=== PATIENT | female | born 1960 | race Caucasian/White ===

== ENCOUNTER 2019-01-11 08:53 | Outpatient (CLI) | payer OTHER ==
[~2019-01-11 08:53] MED LIST: CYM30 PO; DOCU-144 PO; ESOM20CA; FLUT16SP24 NS; FLUT1DIS3 IH; HYDR-1189 PO; PARO-63 PO; VALS40TA6
== END 2019-01-11 21:11 | disposition home or self-care (01) ==
LOC: SUS 08:53
PROVIDERS: ATTEND Surgery
DX: K46.9 Unspecified abdominal hernia without obstruction or gangrene (principal)
CPT/HCPCS: 76705

== ENCOUNTER 2019-01-17 07:55 | Outpatient (CLI) | payer OTHER ==
[2019-01-17] MEDS ORDERED: DIATR MEGLU/DIATRIZ SOD 30 ML SOLUTION PO ONE (08:33)
== END 2019-01-17 20:30 | disposition home or self-care (01) ==
LOC: SCT 07:55
PROVIDERS: ATTEND Surgery
DX: K43.9 Ventral hernia without obstruction or gangrene (principal); K43.2 Incisional hernia without obstruction or gangrene
CPT/HCPCS: 74176; Q9964

== ENCOUNTER 2019-02-03 12:27 | Inpatient (IN) | payer OTHER ==
[2019-01-30 17:01] LABS: RED BLOOD CELL COUNT(AUTO) 4.64 MIL/uL (4.2-6.2); WHITE BLOOD COUNT (AUTO) 7.3 K/uL (4.8-10.8)
[2019-01-30 17:02] LABS: BASOPHILS % (AUTO) 0.5 % (0.0-2.0); EOSINOPHILS # (AUTO) 0.2 K/uL (0.0-0.4); EOSINOPHILS % (AUTO) 3.3 % (0.0-4.0); HEMATOCRIT 41.1 % (36-48); HEMOGLOBIN 13.7 g/dL (12.0-16.0); LYMPHOCYTES # (AUTO) 1.9 K/uL (1.0-5.5); LYMPHOCYTES % (AUTO) 25.8 % (20.5-51.5); MEAN CORPUSCULAR HEMOGLOBIN 30 pg (27-31); MEAN CORPUSCULAR HGB CONC 33 % (32-36); MEAN CORPUSCULAR VOLUME 89 fL (79.0-98.0); MONOCYTES # (AUTO) 0.5 K/uL (0.0-1.0); MONOCYTES % (AUTO) 7.4 % (1.7-9.3); NEUTROPHILS # (AUTO) 4.6 K/uL (1.8-7.7); PLATELET COUNT (AUTO) 278 K/uL (130-430); RED CELL DISTRIBUTION WIDTH 13.8 % (9.0-15.0)
[2019-01-30 17:06] LABS: PROTHROMBIN TIME 10.1 SECS (9.5-12.5)
[2019-01-30 17:08] LABS: ALBUMIN 4.2 g/dL (3.4-4.8); CALCIUM 9.3 mg/dL (8.4-11.0); CREATININE 0.76 mg/dL (0.55-1.30); POTASSIUM 3.9 mmol/L (3.5-5.1); TOTAL BILIRUBIN 0.4 mg/dL (0.0-1.0)
[~2019-02-03] VITALS: Ht 165.1 cm; Wt 85.8 kg
[2019-02-03] MEDS ORDERED: VALS160T2 PO (13:29)
[2019-02-03] MEDS ORDERED: ASPI-1153 PO (13:29)
[2019-02-03] MEDS ORDERED: GLU500 PO (13:29)
[2019-02-03] MEDS ORDERED: LIP10 PO (13:29)
[2019-02-03] MEDS ORDERED: OMEP40CA33 PO (13:29)
[2019-02-03] MEDS ORDERED: MIDAZOLAM HCL 5 MG/5 ML VIAL IVP ONE (15:00)
[2019-02-03] MEDS ORDERED: hydrALAZINE HCL 20 MG/ML VIAL IVP ONE (15:00)
[2019-02-03] MEDS ORDERED: LIDOCAINE 2%, 20 ML MDV INJ ONE (15:00)
[2019-02-03] MEDS ORDERED: BUPIVACAINE /PF 0.5% 30 ML VIAL INJ ONE (15:00)
[2019-02-03] MEDS ORDERED: SEVOFLURANE 15 MIN GAS INH ONE (15:00)
[2019-02-03] MEDS ORDERED: KETOROLAC TROMETHAMINE 30 MG VIAL IVP ONE (15:00)
[2019-02-03] MEDS ORDERED: LABETALOL 100 MG/ 20ML VIAL IVP ONE (15:00)
[2019-02-03] MEDS ORDERED: NS IRRIG SOLN 1000 ML IR ONE (15:00)
[2019-02-03] MEDS ORDERED: MEPERIDINE HCL/PF 100 MG/ML AMP IM ONE (15:00)
[2019-02-03] MEDS ORDERED: NS 100 ML BAG IV ONE (15:00)
[2019-02-03] MEDS ORDERED: CEFAZOLIN 2 GM IVPB PREMIX 50 ML IV ONE (15:00)
[2019-02-03] MEDS ORDERED: LR 1,000 ML IV.SOLN IV ONE (15:00)
[2019-02-03] MEDS ORDERED: fentaNYL CITRATE/PF 100 MCG/2 ML AMP IVP ONE (15:00)
[2019-02-03] MEDS ORDERED: ROCURONIUM BROMIDE 10 MG/ML (ZEMURON) IV ONE (15:00)
[2019-02-03] MEDS ORDERED: ONDANSETRON HCL 4 MG/2 ML VIAL IVP ONE (15:00)
[2019-02-03] MEDS ORDERED: PROPOFOL 200MG/ 20ML VIAL (DIPRIVAN) IV ONE (15:00)
[2019-02-03] MEDS ORDERED: BUPIVACAINE LIPOSOME/PF 266 MG/20 ML VIAL INFIL ONE ×2 (15:00→15:45)
[2019-02-03] MEDS ORDERED: NEOSTIGMINE METHYLSULFATE 1 MG/ML, 10 ML VIAL IVP ONE (15:00)
[2019-02-03] MEDS ORDERED: GLYCOPYRROLATE 0.2 MG/ML VIAL IJ ONE (15:00)
[2019-02-03] MEDS ORDERED: KETOROLAC TROMETHAMINE 30 MG VIAL IVP PRN (16:00)
[2019-02-03] MEDS ORDERED: fentaNYL CITRATE/PF 100 MCG/2 ML AMP IVP PRN ×2 (16:00)
[2019-02-03] MEDS ORDERED: ONDANSETRON HCL 4 MG/2 ML VIAL IVP PRN (16:00)
[2019-02-03] MEDS ORDERED: POLYMYXIN 500,000/BACIT.10,000 UNITS in NS IRR 1 L IR ONE (17:42)
[2019-02-03] MEDS ORDERED: NACL 0.9% 1,000 ML IV SCH (18:23)
[2019-02-03] MEDS ORDERED: CEFAZOLIN 1 GM IVPB PREMIX 50 ML IV SCH (18:30)
[2019-02-03] MEDS ORDERED: ACETAMINOPHEN 325 MG TABLET PO PRN (18:30)
[2019-02-03] MEDS ORDERED: HYDROcodone/ACETAMIN 5-325 MG TAB (NORCO/ VICODIN) PO SCH (19:30)
[2019-02-03] MEDS ORDERED: DEXTROSE 50% JECT 50 ML DISP.SYRIN IVP PRN (19:30)
[2019-02-03] MEDS ORDERED: KETOROLAC TROMETHAMINE 30 MG VIAL ONE (19:44)
[2019-02-03] MEDS ORDERED: INSULIN REGULAR, HUMAN 100 UNITS/ML, 10 ML VIAL SUBCUT ONE (19:45)
[2019-02-03 20:31] VITALS: BP_SYST 117
[2019-02-03 20:40] VITALS: BP_SYST 95
[2019-02-03] MEDS: DOCUSATE SODIUM 100 MG CAPSULE PO SCH (21:00)
[2019-02-03 21:31] VITALS: BP_SYST 107
[2019-02-03 22:00] VITALS: BP_SYST 97
[2019-02-03] MEDS ORDERED: CEFAZOLIN SODIUM 2,000 MG in D5W 50 ML IV SCH (22:00)
[2019-02-03] MEDS: FAMOTIDINE PF 20 MG/2 ML VIAL IVP SCH (22:11)
[2019-02-03 23:00] VITALS: BP_SYST 102
[2019-02-03] MEDS ORDERED: CEFAZOLIN 2 GM IVPB PREMIX 100 ML IV ONE (23:35)
[2019-02-03] MEDS: CEFAZOLIN 2 GM IVPB PREMIX 50 ML IV SCH (23:39)
[2019-02-04] VITALS (21 sets, daily range): BP systolic 87–116
[2019-02-04] MEDS: HYDROmorphone 1 MG INJ. 1 MG/ML AMPUL IVP PRN ×3 (00:48→19:29)
[2019-02-04] MEDS: INSULIN REGULAR, HUMAN 100 UNITS/ML, 10 ML VIAL (novoLIN R) SUBCUT PRN ×3 (00:57→09:26)
[2019-02-04] MEDS: D5/0.45 NS 1,000 ML IV SCH ×3 (02:49→16:29)
[2019-02-04] MEDS: CEFAZOLIN 2 GM IVPB PREMIX 50 ML IV SCH (05:21)
[2019-02-04 07:26] LABS: HEMOGLOBIN 11.6 g/dL (12.0-16.0); RED BLOOD CELL COUNT(AUTO) 3.89 MIL/uL (4.2-6.2); WHITE BLOOD COUNT (AUTO) 10.9 K/uL (4.8-10.8)
[2019-02-04 07:27] LABS: BASOPHILS % (AUTO) 0.1 % (0.0-2.0); HEMATOCRIT 34.7 % (36-48); LYMPHOCYTES # (AUTO) 0.5 K/uL (1.0-5.5); LYMPHOCYTES % (AUTO) 4.7 % (20.5-51.5); MEAN CORPUSCULAR HEMOGLOBIN 30 pg (27-31); MEAN CORPUSCULAR HGB CONC 33 % (32-36); MEAN CORPUSCULAR VOLUME 89 fL (79.0-98.0); MONOCYTES # (AUTO) 0.4 K/uL (0.0-1.0); MONOCYTES % (AUTO) 4.1 % (1.7-9.3); NEUTROPHILS # (AUTO) 9.9 K/uL (1.8-7.7); NEUTROPHILS % (AUTO) 91.1 % (40.0-70.0); PLATELET COUNT (AUTO) 261 K/uL (130-430); RED CELL DISTRIBUTION WIDTH 13.7 % (9.0-15.0)
[2019-02-04 07:40] LABS: CALCIUM 8.6 mg/dL (8.4-11.0); CREATININE 0.79 mg/dL (0.55-1.30); POTASSIUM 4.3 mmol/L (3.5-5.1); TOTAL BILIRUBIN 0.6 mg/dL (0.0-1.0)
[2019-02-04 07:41] LABS: ALBUMIN 3.1 g/dL (3.4-4.8); FREE T4 (FREE THYROXINE) 0.9 ng/dl (0.8-1.5); THYROID STIMULATING HORMONE 0.49 uIu/mL (0.36-3.74)
[2019-02-04] MEDS: VALSARTAN 160 MG TABLET (DIOVAN) PO SCH (09:00)
[2019-02-04] MEDS: DOCUSATE SODIUM 100 MG CAPSULE PO SCH ×2 (09:00→20:09)
[2019-02-04] MEDS ORDERED: OMEPRAZOLE 20 MG CAPSULE.DR (PriLOSEC) PO SCH (09:00)
[2019-02-04] MEDS ORDERED: PARoxetine HCL 20 MG TABLET PO SCH (09:00)
[2019-02-04] MEDS: ATORVASTATIN 10 MG TABLET PO SCH (09:14)
[2019-02-04] MEDS: metFORMIN HCL 500 MG TABLET PO SCH (09:14)
[2019-02-04] MEDS: FAMOTIDINE PF 20 MG/2 ML VIAL IVP SCH ×2 (09:15→20:09)
[2019-02-04] MEDS: DULoxetine HCL 30 MG CAPSULE.DR (CYMBALTA) PO SCH (09:15)
[2019-02-04] MEDS: HYDROcodone/ACETAMIN 5-325 MG TAB (NORCO/ VICODIN) PO PRN (09:29)
[2019-02-04] MEDS: ONDANSETRON HCL 4 MG/2 ML VIAL IVP PRN ×2 (13:59→19:47)
[2019-02-04 14:39] LABS: BILIRUBIN,URINE NEGATIVE (NEGATIVE); BLOOD, URINE NEGATIVE (NEGATIVE); CLARITY/URINE CLEAR (CLEAR); COLOR,URINE YELLOW (YELLOW); GLUCOSE,URINE NEGATIVE (NEGATIVE); KETONES,URINE NEGATIVE (NEGATIVE); LEUKOCYTE ESTERASE ,URINE NEGATIVE (NEGATIVE); NITRITE, URINE NEGATIVE (NEGATIVE); PH,URINE 6.5 (5.0-8.0); PROTEIN URINE TRACE (NEGATIVE); UROBILINOGEN,URINE 0.2 (0.2-1.0)
[2019-02-05 00:13] VITALS: BP_SYST 106
[2019-02-05] MEDS: ONDANSETRON HCL 4 MG/2 ML VIAL IVP PRN ×2 (01:36→07:58)
[2019-02-05] MEDS: D5/0.45 NS 1,000 ML IV SCH ×2 (01:36→15:31)
[2019-02-05] MEDS: HYDROmorphone 1 MG INJ. 1 MG/ML AMPUL IVP PRN ×4 (01:37→22:11)
[2019-02-05] MEDS: HYDROcodone/ACETAMIN 5-325 MG TAB (NORCO/ VICODIN) PO PRN ×2 (07:02→15:43)
[2019-02-05 07:29] LABS: CALCIUM 8.3 mg/dL (8.4-11.0); CREATININE 0.61 mg/dL (0.55-1.30); POTASSIUM 3.6 mmol/L (3.5-5.1)
[2019-02-05 07:42] LABS: ALBUMIN 2.9 g/dL (3.4-4.8); TOTAL BILIRUBIN 0.6 mg/dL (0.0-1.0)
[2019-02-05 07:51] LABS: BASOPHILS % (AUTO) 0.4 % (0.0-2.0); EOSINOPHILS % (AUTO) 0.8 % (0.0-4.0); HEMATOCRIT 30.3 % (36-48); HEMOGLOBIN 10.3 g/dL (12.0-16.0); LYMPHOCYTES # (AUTO) 1.4 K/uL (1.0-5.5); LYMPHOCYTES % (AUTO) 17.2 % (20.5-51.5); MEAN CORPUSCULAR HEMOGLOBIN 30 pg (27-31); MEAN CORPUSCULAR HGB CONC 34 % (32-36); MEAN CORPUSCULAR VOLUME 90 fL (79.0-98.0); MONOCYTES # (AUTO) 0.8 K/uL (0.0-1.0); MONOCYTES % (AUTO) 9.4 % (1.7-9.3); NEUTROPHILS # (AUTO) 5.8 K/uL (1.8-7.7); NEUTROPHILS % (AUTO) 72.2 % (40.0-70.0); PLATELET COUNT (AUTO) 226 K/uL (130-430); RED BLOOD CELL COUNT(AUTO) 3.38 MIL/uL (4.2-6.2); RED CELL DISTRIBUTION WIDTH 13.5 % (9.0-15.0); WHITE BLOOD COUNT (AUTO) 8.1 K/uL (4.8-10.8)
[2019-02-05 07:52] LABS: EOSINOPHILS # (AUTO) 0.1 K/uL (0.0-0.4)
[2019-02-05 08:00] VITALS: BP_SYST 115
[2019-02-05] MEDS: DOCUSATE SODIUM 100 MG CAPSULE PO SCH ×2 (08:51→20:56)
[2019-02-05] MEDS: DULoxetine HCL 30 MG CAPSULE.DR (CYMBALTA) PO SCH (08:51)
[2019-02-05] MEDS: metFORMIN HCL 500 MG TABLET PO SCH (08:51)
[2019-02-05] MEDS: ATORVASTATIN 10 MG TABLET PO SCH (08:51)
[2019-02-05] MEDS: FAMOTIDINE PF 20 MG/2 ML VIAL IVP SCH ×2 (08:58→20:55)
[2019-02-05] MEDS: VALSARTAN 160 MG TABLET (DIOVAN) PO SCH (09:00)
[2019-02-05 12:02] VITALS: BP_SYST 128
[2019-02-05] MEDS: INSULIN REGULAR, HUMAN 100 UNITS/ML, 10 ML VIAL (novoLIN R) SUBCUT PRN (12:11)
[2019-02-05] MEDS ORDERED: ONDANSETRON HCL 4 MG/2 ML VIAL IVP PRN (13:00)
[2019-02-05 16:02] VITALS: BP_SYST 128
[2019-02-05 21:03] VITALS: BP_SYST 107
[2019-02-06 00:30] VITALS: BP_SYST 112
[2019-02-06] MEDS: HYDROmorphone 1 MG INJ. 1 MG/ML AMPUL IVP PRN ×3 (06:15→19:06)
[2019-02-06 08:00] VITALS: BP_SYST 106
[2019-02-06] MEDS: VALSARTAN 160 MG TABLET (DIOVAN) PO SCH (09:00)
[2019-02-06] MEDS: ATORVASTATIN 10 MG TABLET PO SCH (09:09)
[2019-02-06] MEDS: metFORMIN HCL 500 MG TABLET PO SCH (09:09)
[2019-02-06] MEDS: FAMOTIDINE PF 20 MG/2 ML VIAL IVP SCH (09:09)
[2019-02-06] MEDS: DULoxetine HCL 30 MG CAPSULE.DR (CYMBALTA) PO SCH (09:09)
[2019-02-06] MEDS: DOCUSATE SODIUM 100 MG CAPSULE PO SCH ×2 (09:09→09:10)
[2019-02-06] MEDS: HYDROcodone/ACETAMIN 5-325 MG TAB (NORCO/ VICODIN) PO PRN (10:37)
[2019-02-06 12:58] VITALS: BP_SYST 112
[2019-02-06] MEDS ORDERED: HYDROmorphone 1 MG INJ. 1 MG/ML AMPUL ONE (15:08)
[2019-02-06] MEDS ORDERED: BISACODYL 10 MG/SUPPOSITORY RC PRN (15:45)
[2019-02-06] MEDS ORDERED: BISACODYL 10 MG/SUPPOSITORY RC ONE (15:45)
[2019-02-06 15:55] VITALS: BP_SYST 112
[2019-02-06 16:36] VITALS: BP_SYST 117
[2019-02-06 18:35] VITALS: BP_SYST 117
== END 2019-02-06 20:10 | disposition home or self-care (01) | DRG 354 ==
LOC: SDS 12:27 → SMU 12:27 → SDS 20:24 → SIC 20:25 → SMU 20:25 → SIC 20:26 → SMU 02-04 19:32 → SIC 02-04 19:32 → SMU 02-06 11:00 → SDS 02-06 11:00 → SMU 02-06 11:08 → UNDOADMIN 02-06 11:08
PROVIDERS: ADMIT Surgery; ATTEND Surgery
PROC: 0WUF0KZ Supplement Abdominal Wall with Nonautologous Tissue Substitute, Open Approach (ICD-10-PCS; principal; 2019-02-03 14:30)
DX: K43.9 Ventral hernia without obstruction or gangrene (principal); K56.7 Ileus, unspecified; E11.9 Type 2 diabetes mellitus without complications; I10 Essential (primary) hypertension; F32.9 Major depressive disorder, single episode, unspecified; G47.33 Obstructive sleep apnea (adult) (pediatric); E66.9 Obesity, unspecified; G47.30 Sleep apnea, unspecified; K66.0 Peritoneal adhesions (postprocedural) (postinfection); Z68.31 Body mass index [BMI] 31.0-31.9, adult; Z93.3 Colostomy status
CPT/HCPCS: 36415; 71046-TC; 80053; 80061; 81003; 82948; 82962; 83036; 83735-TC; 84439; 84443-TC; 85025; 85610-TC; 85730-TC; 86886; 86900; 86901; 87081; 88304; 88305; 93005; 94010; 94660; 94760; 97110-GP; 97116-GP; 97530-GP; C9290; J0360; J0690; J1170; J1815; J1885; J2001; J2175; J2250; J2405; J2704; J2710; J3010; J3490; J7120

== ENCOUNTER 2019-02-28 17:46 | Inpatient (IN) | payer OTHER ==
[~2019-02-28] VITALS: Ht 167.6 cm; Wt 85.7 kg
[~2019-02-28 17:46] MED LIST changes: +ASPI-1153 PO; +GLU500 PO; +LIP10 PO; +OMEP40CA33 PO; +VALS160T2 PO
[2019-02-28 18:18] VITALS: BP_SYST 102
[2019-02-28 19:03] LABS: BASOPHILS # (AUTO) 0.1 K/uL (0.0-0.2); BASOPHILS % (AUTO) 0.6 % (0.0-2.0); EOSINOPHILS # (AUTO) 0.8 K/uL (0.0-0.4); EOSINOPHILS % (AUTO) 7.3 % (0.0-4.0); HEMATOCRIT 34.9 % (36-48); HEMOGLOBIN 11.6 g/dL (12.0-16.0); LYMPHOCYTES # (AUTO) 1.6 K/uL (1.0-5.5); LYMPHOCYTES % (AUTO) 15.8 % (20.5-51.5); MEAN CORPUSCULAR HEMOGLOBIN 29 pg (27-31); MEAN CORPUSCULAR HGB CONC 33 % (32-36); MEAN CORPUSCULAR VOLUME 87 fL (79.0-98.0); MONOCYTES # (AUTO) 0.7 K/uL (0.0-1.0); MONOCYTES % (AUTO) 7.1 % (1.7-9.3); NEUTROPHILS # (AUTO) 7.2 K/uL (1.8-7.7); NEUTROPHILS % (AUTO) 69.2 % (40.0-70.0); PLATELET COUNT (AUTO) 549 K/uL (130-430); RED BLOOD CELL COUNT(AUTO) 4.03 MIL/uL (4.2-6.2); WHITE BLOOD COUNT (AUTO) 10.4 K/uL (4.8-10.8)
[2019-02-28 19:14] LABS: CALCIUM 9.4 mg/dL (8.4-11.0); CREATININE 0.76 mg/dL (0.55-1.30)
[2019-02-28 19:19] LABS: ALBUMIN 3.1 g/dL (3.4-4.8); TOTAL BILIRUBIN 0.2 mg/dL (0.0-1.0)
[2019-02-28 19:24] LABS: PROTHROMBIN TIME 10.6 SECS (9.5-12.5)
[2019-02-28] MEDS ORDERED: NACL 0.9% 1,000 ML IV ONE (19:59)
[2019-02-28] MEDS ORDERED: MORPHINE 4 MG/ML INJ. SYRINGE IVP ONE (20:00)
[2019-02-28] MEDS ORDERED: DIPHENHYDRAMINE INJ 50 MG/ML VIAL IVP ONE (20:00)
[2019-02-28] MEDS ORDERED: PIPERACILLIN/TAZO 3.375 GM in NS 50 ML IV ONE (20:00)
[2019-02-28] MEDS ORDERED: PIPERACILLIN/TAZOBACTAM 3.375 GM/VIAL (ZOSYN) IV ONE ×2 (20:29→23:54)
[2019-02-28] MEDS ORDERED: ESOM40CA PO (20:38)
[2019-02-28 21:09] LABS: BILIRUBIN,URINE NEGATIVE (NEGATIVE); BLOOD, URINE NEGATIVE (NEGATIVE); CLARITY/URINE CLEAR (CLEAR); COLOR,URINE YELLOW (YELLOW); GLUCOSE,URINE NEGATIVE (NEGATIVE); KETONES,URINE NEGATIVE (NEGATIVE); LEUKOCYTE ESTERASE ,URINE NEGATIVE (NEGATIVE); NITRITE, URINE NEGATIVE (NEGATIVE); PH,URINE 6.5 (5.0-8.0); PROTEIN URINE NEGATIVE (NEGATIVE); UROBILINOGEN,URINE 0.2 (0.2-1.0)
[2019-02-28 23:04] VITALS: BP_SYST 124
[2019-02-28] MEDS ORDERED: DEXTROSE 50% JECT 50 ML DISP.SYRIN IVP PRN (23:30)
[2019-02-28] MEDS ORDERED: ACETAMINOPHEN 325 MG TABLET PO PRN (23:30)
[2019-02-28] MEDS ORDERED: MORPHINE 4 MG/ML INJ. SYRINGE IVP PRN ×2 (23:30)
[2019-02-28] MEDS ORDERED: HYDROcodone/ACETAMIN 5-325 MG TAB (NORCO/ VICODIN) PO SCH (23:30)
[2019-02-28] MEDS ORDERED: DIPHENHYDRAMINE INJ 50 MG/ML VIAL IVP PRN (23:30)
[2019-02-28] MEDS ORDERED: ZOLPIDEM TARTRATE 5 MG TABLET PO PRN (23:30)
[2019-02-28] MEDS ORDERED: ONDANSETRON HCL 4 MG/2 ML VIAL IVP PRN (23:30)
[2019-03-01 00:10] VITALS: BP_SYST 128
[2019-03-01] MEDS: PIPERACILLIN/TAZO 3.375/DEX-IS 50 ML IV SCH ×4 (02:06→20:18)
[2019-03-01] MEDS: OMEPRAZOLE 20 MG CAPSULE.DR (PriLOSEC) PO SCH (06:20)
[2019-03-01 06:56] LABS: BASOPHILS # (AUTO) 0.1 K/uL (0.0-0.2); BASOPHILS % (AUTO) 0.7 % (0.0-2.0); EOSINOPHILS # (AUTO) 0.8 K/uL (0.0-0.4); EOSINOPHILS % (AUTO) 9.1 % (0.0-4.0); HEMATOCRIT 30.7 % (36-48); HEMOGLOBIN 10.2 g/dL (12.0-16.0); LYMPHOCYTES # (AUTO) 1.4 K/uL (1.0-5.5); LYMPHOCYTES % (AUTO) 16.4 % (20.5-51.5); MEAN CORPUSCULAR HEMOGLOBIN 28 pg (27-31); MEAN CORPUSCULAR HGB CONC 33 % (32-36); MEAN CORPUSCULAR VOLUME 85 fL (79.0-98.0); MONOCYTES # (AUTO) 0.7 K/uL (0.0-1.0); MONOCYTES % (AUTO) 8.1 % (1.7-9.3); NEUTROPHILS # (AUTO) 5.7 K/uL (1.8-7.7); NEUTROPHILS % (AUTO) 65.7 % (40.0-70.0); PLATELET COUNT (AUTO) 500 K/uL (130-430); RED BLOOD CELL COUNT(AUTO) 3.61 MIL/uL (4.2-6.2); RED CELL DISTRIBUTION WIDTH 13.8 % (9.0-15.0); WHITE BLOOD COUNT (AUTO) 8.7 K/uL (4.8-10.8)
[2019-03-01 07:45] LABS: ANION GAP 9 (5-15); CALCIUM 8.9 mg/dL (8.4-11.0); CHLORIDE 105 mmol/L (98-107); CREATININE 0.75 mg/dL (0.55-1.30); GLUCOSE 96 mg/dL (70-99); POTASSIUM 3.8 mmol/L (3.5-5.1); SODIUM SERUM 140 mmol/L (136-145); UREA NITROGEN, BLOOD 11 mg/dL (8-21)
[2019-03-01 08:00] VITALS: BP_SYST 132
[2019-03-01 08:00] LABS: THYROID STIMULATING HORMONE 1.07 uIu/mL (0.36-3.74)
[2019-03-01 08:02] LABS: GFR AFRICAN AMERICAN 101 mL/min (>90); LIPASE 83 U/L (73-393)
[2019-03-01] MEDS: FLUTICASONE PROPIONATE 50 mCg/SPRAY 16 GM NS SCH ×2 (08:35→20:19)
[2019-03-01] MEDS: ATORVASTATIN 10 MG TABLET PO SCH (08:35)
[2019-03-01] MEDS: CHOLECALCIFEROL (VITAMIN D3) 2,000 UNIT TABLET PO SCH (08:35)
[2019-03-01] MEDS: ASPIRIN 81 MG TABLET(ECOTRIN) PO SCH (08:36)
[2019-03-01] MEDS: DULoxetine HCL 30 MG CAPSULE.DR (CYMBALTA) PO SCH (08:36)
[2019-03-01] MEDS: DOCUSATE SODIUM 100 MG CAPSULE PO SCH ×2 (08:36→20:19)
[2019-03-01] MEDS: metFORMIN HCL 500 MG TABLET PO SCH (08:36)
[2019-03-01] MEDS: PARoxetine HCL 20 MG TABLET PO SCH (08:36)
[2019-03-01] MEDS: MULTIVITS,CA,MINERALS/IRON/FA 1 TABLET PO SCH (08:37)
[2019-03-01] MEDS: VALSARTAN 160 MG TABLET (DIOVAN) PO SCH (08:37)
[2019-03-01] MEDS ORDERED: NON-FORMULARY MEDICATION (Esomeprazole Mag Trihydrate (Nexium) 40 MG) PO SCH (09:00)
[2019-03-01] MEDS ORDERED: FLUTICASONE 250 mCg/SALMETEROL 50 mCg DISKUS W.DEV IH SCH (09:00)
[2019-03-01] MEDS: ALBUTEROL SULFATE 0.083% 2.5 MG/3 ML VIAL.NEB INH SCH ×2 (10:00→19:29)
[2019-03-01] MEDS: BUDESONIDE 0.5 MG/2 ML AMPUL.NEB INH SCH ×2 (10:00→19:48)
[2019-03-01 11:03] VITALS: BP_SYST 113
[2019-03-01] MEDS ORDERED: SILVER SULFADIAZINE 1%, 25 GM TOPICAL CREAM (SSD) TP ONE (11:30)
[2019-03-01 11:48] VITALS: BP_SYST 113
[2019-03-01] MEDS ORDERED: LINEZOLID 300 ML IV ONE (12:45)
[2019-03-01] MEDS: HYDROcodone/ACETAMIN 5-325 MG TAB (NORCO/ VICODIN) PO SCH ×4 (14:31→23:29)
[2019-03-01 16:15] VITALS: BP_SYST 102
[2019-03-01 20:12] VITALS: BP_SYST 110
[2019-03-01] MEDS: LINEZOLID 300 ML IV SCH (20:18)
[2019-03-01] MEDS: SILVER SULFADIAZINE 1%, 25 GM TOPICAL CREAM (SSD) TP SCH (20:26)
[2019-03-02 00:22] VITALS: BP_SYST 108
[2019-03-02] MEDS: PIPERACILLIN/TAZO 3.375/DEX-IS 50 ML IV SCH ×4 (01:21→21:18)
[2019-03-02] MEDS: OMEPRAZOLE 20 MG CAPSULE.DR (PriLOSEC) PO SCH (06:11)
[2019-03-02] MEDS: HYDROcodone/ACETAMIN 5-325 MG TAB (NORCO/ VICODIN) PO SCH ×4 (06:11→23:35)
[2019-03-02 07:43] VITALS: BP_SYST 110
[2019-03-02] MEDS: FLUTICASONE PROPIONATE 50 mCg/SPRAY 16 GM NS SCH ×2 (09:00→21:17)
[2019-03-02] MEDS: metFORMIN HCL 500 MG TABLET PO SCH (09:01)
[2019-03-02] MEDS: CHOLECALCIFEROL (VITAMIN D3) 2,000 UNIT TABLET PO SCH (09:01)
[2019-03-02] MEDS: ASPIRIN 81 MG TABLET(ECOTRIN) PO SCH (09:01)
[2019-03-02] MEDS: ATORVASTATIN 10 MG TABLET PO SCH (09:01)
[2019-03-02] MEDS: DULoxetine HCL 30 MG CAPSULE.DR (CYMBALTA) PO SCH (09:01)
[2019-03-02] MEDS: DOCUSATE SODIUM 100 MG CAPSULE PO SCH ×2 (09:01→21:18)
[2019-03-02] MEDS: VALSARTAN 160 MG TABLET (DIOVAN) PO SCH (09:02)
[2019-03-02] MEDS: MULTIVITS,CA,MINERALS/IRON/FA 1 TABLET PO SCH (09:02)
[2019-03-02] MEDS: PARoxetine HCL 20 MG TABLET PO SCH (09:03)
[2019-03-02] MEDS: SILVER SULFADIAZINE 1%, 25 GM TOPICAL CREAM (SSD) TP SCH ×2 (09:06→21:25)
[2019-03-02] MEDS: BUDESONIDE 0.5 MG/2 ML AMPUL.NEB INH SCH ×2 (09:14→19:59)
[2019-03-02] MEDS: LINEZOLID 300 ML IV SCH ×2 (09:15→21:18)
[2019-03-02 12:02] VITALS: BP_SYST 120
[2019-03-02] MEDS: ALBUTEROL SULFATE 0.083% 2.5 MG/3 ML VIAL.NEB INH SCH ×2 (15:52→19:59)
[2019-03-02 16:11] VITALS: BP_SYST 107
[2019-03-02 20:00] VITALS: BP_SYST 120
[2019-03-02] MEDS: INSULIN REGULAR, HUMAN 100 UNITS/ML, 10 ML VIAL (novoLIN R) SUBCUT PRN (21:21)
[2019-03-03 00:27] VITALS: BP_SYST 103
[2019-03-03] MEDS: PIPERACILLIN/TAZO 3.375/DEX-IS 50 ML IV SCH ×3 (02:29→14:12)
[2019-03-03] MEDS: OMEPRAZOLE 20 MG CAPSULE.DR (PriLOSEC) PO SCH (06:08)
[2019-03-03] MEDS: HYDROcodone/ACETAMIN 5-325 MG TAB (NORCO/ VICODIN) PO SCH ×4 (06:09→23:40)
[2019-03-03 08:00] VITALS: BP_SYST 104
[2019-03-03] MEDS: DULoxetine HCL 30 MG CAPSULE.DR (CYMBALTA) PO SCH (08:20)
[2019-03-03] MEDS: DOCUSATE SODIUM 100 MG CAPSULE PO SCH ×3 (08:21→20:34)
[2019-03-03] MEDS: MULTIVITS,CA,MINERALS/IRON/FA 1 TABLET PO SCH (08:21)
[2019-03-03] MEDS: metFORMIN HCL 500 MG TABLET PO SCH (08:21)
[2019-03-03] MEDS: ASPIRIN 81 MG TABLET(ECOTRIN) PO SCH (08:21)
[2019-03-03] MEDS: PARoxetine HCL 20 MG TABLET PO SCH (08:21)
[2019-03-03] MEDS: FLUTICASONE PROPIONATE 50 mCg/SPRAY 16 GM NS SCH ×2 (08:21→20:24)
[2019-03-03] MEDS: CHOLECALCIFEROL (VITAMIN D3) 2,000 UNIT TABLET PO SCH (08:21)
[2019-03-03] MEDS: ATORVASTATIN 10 MG TABLET PO SCH (08:21)
[2019-03-03] MEDS: ALBUTEROL SULFATE 0.083% 2.5 MG/3 ML VIAL.NEB INH SCH ×2 (09:00→20:15)
[2019-03-03] MEDS: VALSARTAN 160 MG TABLET (DIOVAN) PO SCH (09:00)
[2019-03-03] MEDS: BUDESONIDE 0.5 MG/2 ML AMPUL.NEB INH SCH ×2 (09:00→20:15)
[2019-03-03] MEDS: LINEZOLID 300 ML IV SCH ×2 (09:14→20:24)
[2019-03-03 11:29] VITALS: BP_SYST 106
[2019-03-03] MEDS: SILVER SULFADIAZINE 1%, 25 GM TOPICAL CREAM (SSD) TP SCH ×2 (12:26→21:00)
[2019-03-03 15:25] VITALS: BP_SYST 113
[2019-03-03] MEDS ORDERED: cefTRIAXone 1 GM in D5W 50 ML IV SCH (17:00)
[2019-03-03 20:40] VITALS: BP_SYST 123
[2019-03-04 00:52] VITALS: BP_SYST 118
[2019-03-04] MEDS: OMEPRAZOLE 20 MG CAPSULE.DR (PriLOSEC) PO SCH (05:57)
[2019-03-04] MEDS: HYDROcodone/ACETAMIN 5-325 MG TAB (NORCO/ VICODIN) PO SCH ×3 (05:58→17:14)
[2019-03-04] MEDS: INSULIN REGULAR, HUMAN 100 UNITS/ML, 10 ML VIAL (novoLIN R) SUBCUT PRN (06:02)
[2019-03-04 07:58] VITALS: BP_SYST 111
[2019-03-04] MEDS: MULTIVITS,CA,MINERALS/IRON/FA 1 TABLET PO SCH (08:18)
[2019-03-04] MEDS: LINEZOLID 300 ML IV SCH (08:18)
[2019-03-04] MEDS: PARoxetine HCL 20 MG TABLET PO SCH (08:19)
[2019-03-04] MEDS: VALSARTAN 160 MG TABLET (DIOVAN) PO SCH (08:19)
[2019-03-04] MEDS: metFORMIN HCL 500 MG TABLET PO SCH (08:19)
[2019-03-04] MEDS: CHOLECALCIFEROL (VITAMIN D3) 2,000 UNIT TABLET PO SCH (08:19)
[2019-03-04] MEDS: ATORVASTATIN 10 MG TABLET PO SCH (08:19)
[2019-03-04] MEDS: DULoxetine HCL 30 MG CAPSULE.DR (CYMBALTA) PO SCH (08:19)
[2019-03-04] MEDS: ASPIRIN 81 MG TABLET(ECOTRIN) PO SCH (08:19)
[2019-03-04] MEDS: FLUTICASONE PROPIONATE 50 mCg/SPRAY 16 GM NS SCH (08:20)
[2019-03-04] MEDS: DOCUSATE SODIUM 100 MG CAPSULE PO SCH (08:21)
[2019-03-04] MEDS: SILVER SULFADIAZINE 1%, 25 GM TOPICAL CREAM (SSD) TP SCH (08:27)
[2019-03-04] MEDS: BUDESONIDE 0.5 MG/2 ML AMPUL.NEB INH SCH (09:00)
[2019-03-04] MEDS: ALBUTEROL SULFATE 0.083% 2.5 MG/3 ML VIAL.NEB INH SCH (09:08)
[2019-03-04 09:10] VITALS: BP_SYST 111
[2019-03-04 11:18] VITALS: BP_SYST 115
[2019-03-04 16:00] VITALS: BP_SYST 118
[2019-03-04 17:23] VITALS: BP_SYST 115
== END 2019-03-04 18:55 | disposition home or self-care (01) | DRG 863 ==
LOC: SED 17:46 → SMU 20:24
PROVIDERS: ADMIT Internal Medicine; ATTEND Internal Medicine
PROC: 0H97XZZ Drainage of Abdomen Skin, External Approach (ICD-10-PCS; principal; 2019-02-28)
DX: T81.41XA Infection following a procedure, superficial incisional surgical site, initial encounter (principal); L02.211 Cutaneous abscess of abdominal wall; L03.311 Cellulitis of abdominal wall; E11.9 Type 2 diabetes mellitus without complications; E66.9 Obesity, unspecified; I10 Essential (primary) hypertension; J45.909 Unspecified asthma, uncomplicated; Y83.8 Other surgical procedures as the cause of abnormal reaction of the patient, or of later complication, without mention of misadventure at the time of the procedure; F32.9 Major depressive disorder, single episode, unspecified; E78.5 Hyperlipidemia, unspecified; G47.33 Obstructive sleep apnea (adult) (pediatric); Y92.89 Other specified places as the place of occurrence of the external cause; Z79.899 Other long term (current) drug therapy; Z79.82 Long term (current) use of aspirin; Z68.30 Body mass index [BMI] 30.0-30.9, adult
CPT/HCPCS: 36415; 80048; 80053; 81003; 82150-TC; 82962; 83605; 83690-TC; 84443-TC; 85025; 85610-TC; 85730-TC; 87040-TC; 87070-TC; 87081; 87186-TC; 87230-TC; 94640; 94660; 94760; 96365; 96375; 99285; J0696; J1200; J1815; J2020; J2270; J2405; J2543; J7060; J7613; J7626

== ENCOUNTER 2019-05-26 12:50 | Outpatient (CLI) | payer OTHER ==
[~2019-05-26 12:50] MED LIST changes: -ESOM20CA; +ESOM40CA PO; -HYDR-1189 PO; -VALS40TA6
[2019-05-26 13:44] LABS: BASOPHILS % (AUTO) 0.8 % (0.0-2.0); EOSINOPHILS # (AUTO) 0.2 K/uL (0.0-0.4); EOSINOPHILS % (AUTO) 3.6 % (0.0-4.0); HEMOGLOBIN 10.9 g/dL (12.0-16.0); LYMPHOCYTES # (AUTO) 1.6 K/uL (1.0-5.5); LYMPHOCYTES % (AUTO) 28.4 % (20.5-51.5); MEAN CORPUSCULAR HEMOGLOBIN 24 pg (27-31); MEAN CORPUSCULAR HGB CONC 31 % (32-36); MEAN CORPUSCULAR VOLUME 76 fL (79.0-98.0); MONOCYTES # (AUTO) 0.4 K/uL (0.0-1.0); MONOCYTES % (AUTO) 7.5 % (1.7-9.3); NEUTROPHILS # (AUTO) 3.4 K/uL (1.8-7.7); NEUTROPHILS % (AUTO) 59.7 % (40.0-70.0); PLATELET COUNT (AUTO) 361 K/uL (130-430); RED CELL DISTRIBUTION WIDTH 16.8 % (9.0-15.0); WHITE BLOOD COUNT (AUTO) 5.6 K/uL (4.8-10.8)
[2019-05-26 14:00] LABS: ALBUMIN 3.9 g/dL (3.4-4.8); CALCIUM 9.8 mg/dL (8.4-11.0); CREATININE 0.83 mg/dL (0.55-1.30); POTASSIUM 3.6 mmol/L (3.5-5.1); TOTAL BILIRUBIN 0.3 mg/dL (0.0-1.0)
== END 2019-05-26 19:28 | disposition home or self-care (01) ==
LOC: SUS 12:50
PROVIDERS: ATTEND Internal Medicine Infectious Disease
DX: L02.211 Cutaneous abscess of abdominal wall (principal)
CPT/HCPCS: 36415; 76700-TC; 80053; 85025

== ENCOUNTER 2019-06-02 08:20 | Outpatient (CLI) | payer OTHER | END 2019-06-02 21:03 | disposition home or self-care (01) | LOC: SCT 08:20 | PROVIDERS: ATTEND Surgery | DX: R10.9 Unspecified abdominal pain (principal) ==

== ENCOUNTER 2019-06-09 06:44 | Outpatient (CLI) | payer OTHER ==
[2019-06-09] MEDS ORDERED: DIATR MEGLU/DIATRIZ SOD 30 ML SOLUTION PO ONE (07:28)
== END 2019-06-09 21:10 | disposition home or self-care (01) ==
LOC: SCT 06:44
PROVIDERS: ATTEND Surgery
DX: R18.8 Other ascites (principal)
CPT/HCPCS: 74176; Q9964

== ENCOUNTER 2020-01-03 03:37 | Inpatient (IN) | payer OTHER ==
[~2020-01-03] VITALS: Ht 167.6 cm; Wt 92.5 kg
[2020-01-03 03:37] VITALS: BP_SYST 151
--- NOTE | 2020-01-03 03:37 | NUR ---
Pt wheeled to bed 6 for evaluation
[2020-01-03] MEDS ORDERED: NACL 0.9% 1,000 ML IV ONE (03:54)
[2020-01-03] MEDS ORDERED: NS 1000 ML IV.SOLN IV ONE (04:00)
[2020-01-03] MEDS ORDERED: PIPERACILLIN/TAZO 3.38 GM in D5W 50 ML IV ONE (04:00)
[2020-01-03] MEDS ORDERED: ONDANSETRON HCL 4 MG/2 ML VIAL IVP ONE (04:00)
[2020-01-03] MEDS ORDERED: MORPHINE 4 MG/ML INJ. SYRINGE IVP ONE ×2 (04:00→05:45)
--- NOTE | 2020-01-03 04:00 | NUR ---
Dr. Espinosa at bedside for pt eval
--- NOTE | 2020-01-03 04:10 | NUR ---
Pt BIB family to ED C/O abdominal pain and slight distention since midnight. . She has an extensive H/O perforated diverticulitis, SBO and hernias No other compliants and or injuries noted VSS no s/s of acute distress Resting on gurney rails up
[2020-01-03] MEDS ORDERED: PIPERACILLIN/TAZOBACTAM 3.375 GM/VIAL (ZOSYN) IV ONE (04:28)
[2020-01-03 04:56] LABS: BASOPHILS % (AUTO) 0.5 % (0.0-2.0); EOSINOPHILS # (AUTO) 0.1 K/uL (0.0-0.4); HEMOGLOBIN 12.5 g/dL (12.0-16.0); MONOCYTES # (AUTO) 0.6 K/uL (0.0-1.0); NEUTROPHILS # (AUTO) 3.7 K/uL (1.8-7.7); RED BLOOD CELL COUNT(AUTO) 4.73 MIL/uL (4.2-6.2); WHITE BLOOD COUNT (AUTO) 5.5 K/uL (4.8-10.8)
[2020-01-03 05:02] LABS: EOSINOPHILS % (AUTO) 2.4 % (0.0-4.0); HEMATOCRIT 38.1 % (36-48); LYMPHOCYTES # (AUTO) 1.1 K/uL (1.0-5.5); LYMPHOCYTES % (AUTO) 20.1 % (20.5-51.5); MEAN CORPUSCULAR HEMOGLOBIN 27 pg (27-31); MEAN CORPUSCULAR HGB CONC 33 % (32-36); MEAN CORPUSCULAR VOLUME 81 fL (79.0-98.0); PLATELET COUNT (AUTO) 239 K/uL (130-430); RED CELL DISTRIBUTION WIDTH 27.7 % (9.0-15.0)
--- NOTE | 2020-01-03 05:05 | NUR ---
VSS no s/s of acute distress Resting on gurney rails up
[2020-01-03 05:08] LABS: CALCIUM 9.3 mg/dL (8.4-11.0); CREATININE 0.76 mg/dL (0.55-1.30); POTASSIUM 3.8 mmol/L (3.5-5.1)
[2020-01-03 05:11] LABS: PROTHROMBIN TIME 9.8 SECS (9.5-12.5)
[2020-01-03 05:15] LABS: ALBUMIN 3.8 g/dL (3.4-4.8); TOTAL BILIRUBIN 0.3 mg/dL (0.0-1.0)
[2020-01-03] MEDS ORDERED: MORPHINE 2 MG/ML INJ. SYRINGE ONE (06:03)
--- NOTE | 2020-01-03 06:36 | NUR ---
Pt taken to Radiology in stable condition
[2020-01-03 06:50] LABS: BILIRUBIN,URINE NEGATIVE (NEGATIVE); BLOOD, URINE NEGATIVE (NEGATIVE); CLARITY/URINE CLEAR (CLEAR); COLOR,URINE YELLOW (YELLOW); GLUCOSE,URINE NEGATIVE (NEGATIVE); KETONES,URINE NEGATIVE (NEGATIVE); LEUKOCYTE ESTERASE ,URINE NEGATIVE (NEGATIVE); NITRITE, URINE NEGATIVE (NEGATIVE); PH,URINE 7.5 (5.0-8.0); PROTEIN URINE NEGATIVE (NEGATIVE); UROBILINOGEN,URINE 0.2 (0.2-1.0)
--- NOTE | 2020-01-03 07:00 | NUR ---
Report from Clyde RUDOLPH
--- NOTE | 2020-01-03 07:20 | NUR ---
Patient sitting up in [facility], pain 01/22, denies N/V/D. at bedside.
[2020-01-03] MEDS ORDERED: MORPHINE 4 MG/ML INJ. SYRINGE IVP PRN (07:30)
[2020-01-03] MEDS ORDERED: ONDANSETRON HCL 4 MG/2 ML VIAL IVP PRN (07:30)
--- NOTE | 2020-01-03 08:05 | NUR ---
Patient will be admitted to [facility]. Admitted to med surge unit. Will go to room 117A. Belongings list completed. Complete and up to date summary report printed. SBAR report to be given at bedside with opportunity for questions.
--- NOTE | 2020-01-03 08:10 | NUR ---
PATIENT CAME TO THE FLOOR VIA GURNEY FROM ER. AAOX 4. LUNGS BILATERALLY CLEAR. ABDOMEN SOFT AND NON DISTENDED HAS IV ACCESS ON THE RT AC #20. SALINE LOCK ON NPO STATUS. ADMISSION ASSESSMENT DONE, PHYSICAL ASSESSMENT DONE. VITALS SIGNED STABLE. AFEBRILE. BED LOW POSITION. ALARMED AND LOCKED. ORIENTED TO ROOM, SURROUNDINGS AND CALL LIGHTS WITHIN REACH. WILL CONTINUE TO MONITOR PATIENTS STATUS.
--- NOTE | 2020-01-03 08:11 | NUR ---
PT STATES THAT SHE SLEEPS WITH A C-PAP MACHINE
[2020-01-03 09:00] VITALS: BP_SYST 150
--- NOTE | 2020-01-03 09:26 | NUR ---
GI consult called: for Jurgen Loo regarding acute abdominal pain, ordered by Dr. Freeman, spoke with Nano.
[2020-01-03] MEDS ORDERED: KCL 20 mEq in D5/0.45NS 1000mL 1,000 ML IV ONE (10:00)
[2020-01-03] MEDS ORDERED: DIATR MEGLU/DIATRIZ SOD 30 ML SOLUTION PO ONE (10:43)
[2020-01-03 12:00] VITALS: BP_SYST 124
--- NOTE | 2020-01-03 12:30 | NUR ---
HAD ICE PACK FOR HEADACHE AND WARM BLANKET REQUESTED.
--- NOTE | 2020-01-03 13:30 | NUR ---
VERBALIZED FEELS BETTER WITH ICE PACKS.
[2020-01-03] MEDS ORDERED: IOHEXOL 100 ML IV ONE (14:20)
--- NOTE | 2020-01-03 15:00 | NUR ---
HAD EATEN LUNCH WITH CHICKEN BROTH. CLEAR LIQUID LUNCH TRAY.
--- NOTE | 2020-01-03 15:27 | NUR ---
PATIENT IN BED WATCHING TV AND RESTING. NO PAIN NOTED.
[2020-01-03 16:06] VITALS: BP_SYST 130
--- NOTE | 2020-01-03 16:14 | NUR ---
MORPHINE SULFATE 4 MG IV GIVEN. MADE COMFORTABLE. GAVE ICE PACKS FOR THE HEADACHES. HOB ELEVATED.
--- NOTE | 2020-01-03 18:02 | NUR ---
AT THE BEDSIDE. PATIENT WANTS THE CPAP TO HAVE IT. AWAITING FOR DR CUMMINGS TO COME. OR CALL BACK. DR CUMMINGS WAS BEEN PAGED.
--- NOTE | 2020-01-03 18:28 | NUR ---
SPOKE TO DR CUMMINGS REGARDING THIS PATIENT CPAP TO ORDER.
--- NOTE | 2020-01-03 19:15 | NUR ---
OPENING NOTES Patient is vomiting, clear emesis. Cold wash cloths provided to patient as requested, at bedside stating that her vomiting comes from not having a CPAP on when she's asleep and she gets a migraine from trying to get more air. Call light within reach after orienting patient on use of call light and bed alarm refused after patient understands the use of bed alarm. Bed at lowest position. Will continue to monitor.
--- NOTE | 2020-01-03 19:16 | NUR ---
ENDORSED TO INCOMING NURSE VALENCIA RUDOLPH
--- NOTE | 2020-01-03 19:17 | NUR ---
PLEASE ASKED DR CUMMINGS FOR TYLENOL TABLET EXTRA STRENGTH FOR HEADACHE. PLS FOLLOW UP
--- NOTE | 2020-01-03 19:50 | NUR ---
DR. CUMMINGS AT BEDSIDE SPEAKING TO FAMILY.
[2020-01-03 20:00] VITALS: BP_SYST 130
[2020-01-03] MEDS ORDERED: INSULIN REGULAR, HUMAN 100 UNITS/ML, 10 ML VIAL (humuLIN R) SUBCUT PRN (20:15)
[2020-01-03] MEDS ORDERED: LevALBUTEROL HCL 1.25 MG/0.5 ML *CONC.* VIAL.NEB (XOPENEX CONC.) INH PRN (20:30)
--- NOTE | 2020-01-03 20:30 | NUR ---
RT at bedside with CPAP, patient is still in distress, provided cold wash cloths and ice chips. Will continue to monitor.
--- NOTE | 2020-01-03 20:58 | NUR ---
Patient is asking for saltines, and educated patient that she is on a clear liquid diet and we are not able to provide saltines. Ice chips and Zofran provided for nausea. Stayed with patient for a few minutes with at bedside. Will continue to monitor.
[2020-01-03] MEDS: FLUTICASONE PROPIONATE 50 mCg/SPRAY 16 GM NS SCH (21:00)
[2020-01-03] MEDS ORDERED: ENOXAPARIN SODIUM 40 MG/0.4 ML SYRINGE SUBCUT SCH (21:00)
[2020-01-03] MEDS ORDERED: FLUTICASONE 250 mCg/SALMETEROL 50 mCg DISKUS W.DEV IH SCH (21:00)
[2020-01-03 21:47] VITALS: BP_SYST 130
[2020-01-04] VITALS: BP_SYST 140
--- NOTE | 2020-01-04 00:07 | NUR ---
CONSULTATION PAGED/CALLED Reason for Consultation: ACUTE ABD PAIN Person Who was Notified: MARIELLE Consulting Physician: JW Wall Cleaner Specialty: Ordering Physician: EMILIANO
[2020-01-04] MEDS: ACETAMINOPHEN 325 MG TABLET PO PRN ×3 (00:22→17:08)
--- NOTE | 2020-01-04 00:25 | NUR ---
Patient is asking for Tylenol, provided Tylenol, patient tolerated well. Patient still refuses bed alarm after educating patient on importance of bed alarm. Will continue to monitor.
[2020-01-04] MEDS ORDERED: ALBUTEROL SULFATE 0.083% 2.5 MG/3 ML VIAL.NEB INH SCH (01:00)
--- NOTE | 2020-01-04 01:30 | NUR ---
Patient is provided ice chips, patient tolerating well. Will continue to monitor.
--- NOTE | 2020-01-04 02:51 | NUR ---
Patient is resting, no signs of acute respiratory distress observed, on CPAP machine, no nausea at this time. Will continue to monitor.
--- NOTE | 2020-01-04 04:11 | NUR ---
Patient is resting, no signs of acute respiratory distress observed. Will continue to monitor.
[2020-01-04] MEDS ORDERED: BUDESONIDE 0.5 MG/2 ML AMPUL.NEB INH SCH (07:00)
--- NOTE | 2020-01-04 07:15 | NUR ---
received patient aao x 4. lungs bilaterally clear, but diminished at the bases. has non productive cough noted. abdomen soft and non distended. obese, but ambulatory. has iv access on the rt ac #20. saline lock. bed low position, alarmed and locked. call lights within reach. vitals signs stable. afebrile. verbalized wants to go home today.
[2020-01-04 07:24] LABS: BASOPHILS % (AUTO) 0.4 % (0.0-2.0); EOSINOPHILS % (AUTO) 0.2 % (0.0-4.0); HEMATOCRIT 36.7 % (36-48); HEMOGLOBIN 12.2 g/dL (12.0-16.0); LYMPHOCYTES % (AUTO) 24.1 % (20.5-51.5); MEAN CORPUSCULAR HEMOGLOBIN 27 pg (27-31); MEAN CORPUSCULAR HGB CONC 33 % (32-36); MEAN CORPUSCULAR VOLUME 81 fL (79.0-98.0); MONOCYTES # (AUTO) 0.4 K/uL (0.0-1.0); MONOCYTES % (AUTO) 9.2 % (1.7-9.3); NEUTROPHILS # (AUTO) 2.8 K/uL (1.8-7.7); NEUTROPHILS % (AUTO) 66.1 % (40.0-70.0); PLATELET COUNT (AUTO) 218 K/uL (130-430); RED BLOOD CELL COUNT(AUTO) 4.54 MIL/uL (4.2-6.2); WHITE BLOOD COUNT (AUTO) 4.3 K/uL (4.8-10.8)
--- NOTE | 2020-01-04 07:25 | NUR ---
CLOSING NOTES Patient is resting, provided Tylenol for her headache, IV site patent, dressings c/d/i. Patient has had no vomiting after midnight. Call light within reach, bed alarm refused after patient understands education, bed at lowest position. All needs met throughout shift. Addendum: 01/04/20 at 0738 by Pratibha Waller RN Will endorse care to oncoming shift.
[2020-01-04 07:29] LABS: CALCIUM 8.8 mg/dL (8.4-11.0); CREATININE 0.44 mg/dL (0.55-1.30); POTASSIUM 3.7 mmol/L (3.5-5.1)
[2020-01-04] MEDS: LevALBUTEROL HCL 1.25 MG/0.5 ML *CONC.* VIAL.NEB (XOPENEX CONC.) INH SCH ×2 (07:42→15:26)
[2020-01-04 07:59] LABS: RED CELL DISTRIBUTION WIDTH 27.5 % (9.0-15.0)
--- NOTE | 2020-01-04 08:15 | NUR ---
dr parra came to evaluate the patient. said possible discharge home today, if okay with dr flores
[2020-01-04] MEDS ORDERED: LOSARTAN POTASSIUM 50 MG TABLET (COZAAR) PO SCH (09:00)
[2020-01-04] MEDS ORDERED: ATORVASTATIN 10 MG TABLET PO SCH (09:00)
[2020-01-04] MEDS ORDERED: DULoxetine HCL 30 MG CAPSULE.DR (CYMBALTA) PO SCH (09:00)
[2020-01-04] MEDS ORDERED: ASPIRIN 81 MG TABLET(ECOTRIN) PO SCH (09:00)
[2020-01-04] MEDS ORDERED: VALSARTAN 160 MG TABLET (DIOVAN) PO SCH (09:00)
--- NOTE | 2020-01-04 09:00 | NUR ---
due meds given. while eating breakfast slow pace. no pain nor sob noted.
[2020-01-04 09:22] VITALS: BP_SYST 143
--- NOTE | 2020-01-04 11:00 | NUR ---
watching tv. resting at this time.
[2020-01-04] MEDS: FLUTICASONE PROPIONATE 50 mCg/SPRAY 16 GM NS SCH (12:26)
[2020-01-04 12:44] VITALS: BP_SYST 127
--- NOTE | 2020-01-04 13:00 | NUR ---
eating lunch while watching tv. no sob nor pain noted. nor nausea noted.
--- NOTE | 2020-01-04 15:30 | NUR ---
went to the bathroom x 2. no bowel movement noted.
[2020-01-04 16:25] VITALS: BP_SYST 128
--- NOTE | 2020-01-04 17:15 | NUR ---
patient left in stable condition with carrie accompNYING HER REFUSED TO HAVE A WHEELCHAIR . DISCHARGE SUMMARY SIGNED. FOLLOW UP THE AUTO MACHINIST, SAID WILL CALL TOMORROW FOR FOLLOW UP CHECK UP. EXPLAINED ALL THE MEDICATIONS AND SIDE EFFECTS. [facility] I D BAND AND IV ACCESS REMOVED. REFUSED TO HAVE BLOOD SUGAR CHECK UP BEFORE LEAVING. ALL BELONGINGS BROUGHT BY THE PATIENT AND .
== END 2020-01-04 17:15 | disposition home or self-care (01) | DRG 392 ==
LOC: SED 03:37 → SMU 07:45
PROVIDERS: ADMIT Family Medicine; ATTEND Family Medicine
DX: R10.9 Unspecified abdominal pain (principal); E11.9 Type 2 diabetes mellitus without complications; G47.33 Obstructive sleep apnea (adult) (pediatric); I10 Essential (primary) hypertension; G89.29 Other chronic pain; K57.90 Diverticulosis of intestine, part unspecified, without perforation or abscess without bleeding; F32.9 Major depressive disorder, single episode, unspecified; E78.5 Hyperlipidemia, unspecified; Z79.899 Other long term (current) drug therapy; Z79.82 Long term (current) use of aspirin
CPT/HCPCS: 36415; 71045; 76700-TC; 80048; 80053; 81003; 82150-TC; 82550-TC; 82962; 83605; 83690-TC; 83880; 84484; 85025; 85610-TC; 85730-TC; 87040-TC; 94640; 94660; 96361; 96365; 96375; 96376; 99285; J1650; J2270; J2405; J2543; J7612; J7626; Q9964; Q9967

== ENCOUNTER 2020-12-06 15:12 | Emergency (ER) | payer BC, SELFPAY ==
[~2020-12-06] VITALS: Ht 167.6 cm; Wt 95.3 kg
[~2020-12-06 15:12] MED LIST changes: -ASPI-1153 PO; +ASPI-1393 PO; -DOCU-144 PO; -ESOM40CA PO; +OMEP40CA13 PO; -OMEP40CA33 PO; -PARO-63 PO
[2020-12-06 15:19] VITALS: BP_SYST 129
[2020-12-06 16:36] VITALS: BP_SYST 128
== END 2020-12-06 16:36 | disposition home or self-care (01) ==
LOC: SED 15:12
DX: U07.1 COVID-19 (principal); J20.9 Acute bronchitis, unspecified; I10 Essential (primary) hypertension; J45.909 Unspecified asthma, uncomplicated; Z79.82 Long term (current) use of aspirin; Z79.84 Long term (current) use of oral hypoglycemic drugs; Z79.899 Other long term (current) drug therapy
CPT/HCPCS: 71045; 93005; 99283

== ENCOUNTER 2023-07-21 15:57 | Emergency (ER) | payer BC ==
[~2023-07-21] VITALS: Ht 167.6 cm; Wt 81.6 kg
[~2023-07-21 15:57] MED LIST changes: -OMEP40CA13 PO; +OMEP40CA20 PO
[2023-07-21 16:06] VITALS: BP_SYST 165; PULSE 72; O2SAT 99
[2023-07-21] MEDS ORDERED: ACET-2634 PO (18:02)
[2023-07-21 18:57] VITALS: BP_SYST 141; PULSE 75; O2SAT 99
== END 2023-07-21 18:57 | disposition home or self-care (01) ==
LOC: SED 15:57
DX: S80.12XA Contusion of left lower leg, initial encounter (principal); R22.42 Localized swelling, mass and lump, left lower limb; J45.909 Unspecified asthma, uncomplicated; E11.9 Type 2 diabetes mellitus without complications; I10 Essential (primary) hypertension; E78.5 Hyperlipidemia, unspecified; Z79.899 Other long term (current) drug therapy; X58.XXXA Exposure to other specified factors, initial encounter; Y93.89 Activity, other specified; Y92.89 Other specified places as the place of occurrence of the external cause; Y99.8 Other external cause status
CPT/HCPCS: 93971; 99284